=== PATIENT | male | born 1985 | race Caucasian/White ===

== ENCOUNTER 2020-04-03 16:11 | Emergency (ER) | payer BC ==
[~2020-04-03] VITALS: Ht 172.7 cm; Wt 77.1 kg
[2020-04-03 16:13] VITALS: BP_SYST 138
[2020-04-03 17:03] VITALS: BP_SYST 138
== END 2020-04-03 17:00 | disposition home or self-care (01) ==
LOC: SED 16:11
DX: S05.02XA Injury of conjunctiva and corneal abrasion without foreign body, left eye, initial encounter (principal); X58.XXXA Exposure to other specified factors, initial encounter; Y93.9 Activity, unspecified; Y92.89 Other specified places as the place of occurrence of the external cause; Y99.8 Other external cause status
CPT/HCPCS: 99283